=== PATIENT | male | born 1950 | race Caucasian/White ===

== ENCOUNTER 2022-07-24 21:04 | Observation (INO) | payer MEDICARE, BC ==
[~2022-07-24 21:04] MED LIST: Iopamidol-370 76% 500 ML 1 ML ONE
[2022-07-24 22:00] LABS: #Eosinphils 0.2 thou/uL (0.0-0.7); #Neutrophils 6.1 thou/uL (1.40-6.50); %Basophils 0.2 % (0.0-1.0); %Eosinophils 2.6 % (0.0-10.0); %Lymphocytes 21.1 % (21.0-51.0); %Monocytes 10.9 % (0.0-10.0); %Neutrophils 65.3 % (42.0-75.0); Hemoglobin 14.1 g/dL (14.0-18.0); Mean Corpuscular HGB CONC 35.8 g/dL (32.0-36.0); Mean Corpuscular Hemoglobin 34.3 pg (27.0-31.0); Mean Corpuscular Volume 95.7 fL (78.0-98.0); Mean Platelet Volume 7.1 fL (7.4-10.4); Platelet Count 229 thou/uL (130-400); Red Blood Cell (RBC) Count 4.11 mill/uL (4.70-6.10); White Blood Cell (WBC) Count 9.3 thou/uL (4.8-10.8)
[2022-07-24 22:18] LABS: ALT (SGPT) 10 U/L (8-55); AST (SGOT) 13 U/L (5-34); Albumin 4.1 g/dL (3.4-4.8); Alkaline Phosphatase 72 U/L (40-110); Anion Gap 18 mmol/L (10-20); BUN (Urea Nitrogen) 6 mg/dL (8.4-25.7); Bilirubin, Total 0.4 mg/dL (0.2-1.2); Calc. Creatinine Clearance 0 mL/min (70-130); Calcium 9.2 mg/dL (7.8-10.44); Carbon Dioxide 24 mmol/L (23-31); Chloride 102 mmol/L (98-107); Estimated GFR 99; Glucose 84 mg/dL (80-115); Protein, Total 7.1 g/dL (5.8-8.1); Sodium 141 mmol/L (136-145)
[2022-07-24] MEDS ORDERED: Morphine 4 MG/ML VIAL ONE (22:21)
[2022-07-24] MEDS ORDERED: Aspirin Chewable 81 MG TAB ONE (22:22)
[2022-07-24] MEDS ORDERED: Ondansetron PF 4 MG/2 ML Vial ONE (22:43)
[2022-07-24] MEDS ORDERED: Diazepam 10 MG/2 ML SYRINGE ONE (22:59)
[2022-07-25] MEDS ORDERED: Fentanyl 100 MCG/2 ML VIAL ONE (01:10)
[2022-07-25 01:41] LABS: Troponin I Less than 0.010 ng/mL (< 0.028)
[2022-07-25] MEDS ORDERED: Ondansetron ODT 4 MG TAB SL PRN (02:30)
[2022-07-25] MEDS ORDERED: Ondansetron PF 4 MG/2 ML Vial IVP PRN (02:30)
[2022-07-25 02:47] VITALS: BMI 29.0
[2022-07-25 05:16] LABS: Troponin I Less than 0.010 ng/mL (< 0.028)
[2022-07-25] MEDS ORDERED: Potassium Chloride 20 MEQ TAB PO SCH ×2 (05:30→13:45)
[2022-07-25] MEDS ORDERED: Nitroglycerin 0.4 MG TAB (25 Tab Bottle) SL PRN (05:30)
[2022-07-25 05:39] LABS: #Eosinphils 0.2 thou/uL (0.0-0.7); #Lymphocytes 1.7 thou/uL (1.20-3.40); #Monocytes 0.9 thou/uL (0.11-0.59); #Neutrophils 6.5 thou/uL (1.40-6.50); %Basophils 0.3 % (0.0-1.0); %Lymphocytes 17.8 % (21.0-51.0); %Monocytes 9.6 % (0.0-10.0); %Neutrophils 70.3 % (42.0-75.0); Hemoglobin 13.5 g/dL (14.0-18.0); Mean Corpuscular HGB CONC 35.5 g/dL (32.0-36.0); Mean Corpuscular Hemoglobin 34.1 pg (27.0-31.0); Mean Corpuscular Volume 95.9 fL (78.0-98.0); Mean Platelet Volume 7.5 fL (7.4-10.4); Platelet Count 225 thou/uL (130-400); RBC Distribution Width 11.8 % (11.5-14.5); Red Blood Cell (RBC) Count 3.95 mill/uL (4.70-6.10); White Blood Cell (WBC) Count 9.3 thou/uL (4.8-10.8)
[2022-07-25 05:58] LABS: Anion Gap 17 mmol/L (10-20); BUN (Urea Nitrogen) 7 mg/dL (8.4-25.7); Calc. Creatinine Clearance 148 mL/min (70-130); Calcium 8.6 mg/dL (7.8-10.44); Carbon Dioxide 25 mmol/L (23-31); Cardiac Risk 3.5 (Less than 4.5); Chloride 100 mmol/L (98-107); Estimated GFR 104; Glucose 116 mg/dL (80-115); Magnesium 1.5 mg/dL (1.6-2.6); Sodium 139 mmol/L (136-145)
[2022-07-25 06:02] LABS: Potassium 2.9 mmol/L (3.5-5.1)
[2022-07-25] MEDS ORDERED: Magnesium 2 GM/50 ML(in water) 2 GM in Premix Bag 1 BAG IVPB SCH (06:15)
[2022-07-25] MEDS: Cyclobenzaprine 10 MG TAB PO SCH ×3 (07:31→19:59)
[2022-07-25] MEDS ORDERED: ADENOSINE 60 MG/20 ML VIAL ONE (08:56)
[2022-07-25] MEDS: Acetaminophen 325 MG TAB PO PRN ×2 (12:59→17:37)
[2022-07-25] MEDS: Potassium Chloride 20 MEQ TAB PO SCH (19:59)
[2022-07-26] MEDS: Acetaminophen 325 MG TAB PO PRN ×4 (00:19→18:18)
[2022-07-26 05:00] LABS: #Eosinphils 0.2 thou/uL (0.0-0.7); #Lymphocytes 1.7 thou/uL (1.20-3.40); #Monocytes 0.8 thou/uL (0.11-0.59); #Neutrophils 4.2 thou/uL (1.40-6.50); %Basophils 0.2 % (0.0-1.0); %Eosinophils 3.1 % (0.0-10.0); %Lymphocytes 24.5 % (21.0-51.0); %Neutrophils 60.1 % (42.0-75.0); Mean Corpuscular HGB CONC 35.3 g/dL (32.0-36.0); Mean Corpuscular Hemoglobin 34.2 pg (27.0-31.0); Mean Platelet Volume 6.9 fL (7.4-10.4); Platelet Count 224 thou/uL (130-400); RBC Distribution Width 11.8 % (11.5-14.5); Red Blood Cell (RBC) Count 3.79 mill/uL (4.70-6.10)
[2022-07-26 05:19] LABS: Anion Gap 13 mmol/L (10-20); BUN (Urea Nitrogen) 6 mg/dL (8.4-25.7); Calc. Creatinine Clearance 151 mL/min (70-130); Calcium 8.9 mg/dL (7.8-10.44); Carbon Dioxide 29 mmol/L (23-31); Cardiac Risk 3.6 (Less than 4.5); Chloride 102 mmol/L (98-107); Cholesterol 124 mg/dl (< 200 Desired); Estimated GFR 104; Glucose 109 mg/dL (80-115); HDL Cholesterol 34 mg/dL (>60 Neg Risk); LDL Cholesterol, Calculated 76 mg/dL; Magnesium 1.9 mg/dL (1.6-2.6); Potassium 3.5 mmol/L (3.5-5.1); Sodium 140 mmol/L (136-145); Triglycerides 70 mg/dL (Less than 150)
[2022-07-26] MEDS: Cyclobenzaprine 10 MG TAB PO SCH ×2 (08:10→14:16)
[2022-07-26] MEDS: Potassium Chloride 20 MEQ TAB PO SCH (08:12)
[2022-07-26] MEDS ORDERED: Amitriptyline HCl 25 MG TAB PO SCH (09:00)
[2022-07-26] MEDS ORDERED: Lisinopril 10 MG TAB PO SCH (09:00)
[2022-07-26] MEDS ORDERED: Atorvastatin Calcium 40 MG TAB PO SCH (09:00)
[2022-07-26] MEDS ORDERED: NIFEdipine XL 60 MG TAB PO SCH (09:00)
[2022-07-26] MEDS ORDERED: Aspirin 81 mg Enteric Coated Tablet PO SCH (09:00)
[2022-07-26] MEDS ORDERED: Citalopram 20 MG TAB PO SCH (09:00)
[2022-07-26 12:04] VITALS: TEMP 99.1
[2022-07-26 17:26] VITALS: BP 120/73
== END 2022-07-26 20:36 | disposition home or self-care (01) ==
LOC: ERS 21:04 → 2SW 07-25 00:36
PROVIDERS: ADMIT Family Medicine; ATTEND Family Medicine
DX: R07.89 Other chest pain (principal); M50.321 Other cervical disc degeneration at C4-C5 level; E87.6 Hypokalemia; I10 Essential (primary) hypertension; E78.5 Hyperlipidemia, unspecified; I72.2 Aneurysm of renal artery; M48.02 Spinal stenosis, cervical region; M48.03 Spinal stenosis, cervicothoracic region; Z79.82 Long term (current) use of aspirin; Z79.899 Other long term (current) drug therapy; Z20.822 Contact with and (suspected) exposure to COVID-19
CPT/HCPCS: 71045; 71275; 72125; 72141; 74174; 78452; 80048 ×2; 80053; 80061 ×2; 83735 ×2; 84484 ×3; 85025 ×3; 93005; 93017; 94760 ×2; 96375; 97116; A9500; G0378 ×3; U0003; U0005; 36415; 96374; J0153; J2270; J2405; J3010; J3360; J3475; Q9967